=== PATIENT | male | born 1985 | race Caucasian/White ===

== ENCOUNTER 2020-01-31 12:28 | Observation (INO) ==
[2020-01-31 13:42] LABS: Basophils % 0.6 %; Eosinophils # 0.2 K/mcL (0.0-0.6); Eosinophils % 3.6 %; Hematocrit 33.5 % (37.5-50.1); Hemoglobin 11.3 g/dL (12.9-16.9); Immature Granulocytes % 0.4 % (0-4); Lymphocytes # 1.3 K/mcL (0.6-4.6); Lymphocytes % 28.2 %; Mean Corpuscular HGB Conc 33.7 g/dL (31.6-35.5); Mean Corpuscular Hemoglobin 31.9 pg (28.0-33.3); Mean Corpuscular Volume 94.6 fL (83.0-100.0); Mean Platelet Volume 9.4 fL (9.4-12.4); Monocytes # 0.2 K/mcL (0.0-1.3); Monocytes % 4.9 %; Neutrophils # 2.9 K/mcL (1.6-8.9); Platelet Count 203 K/mcL (140-400); Red Blood Count 3.54 M/mcL (4.19-5.50); Red Cell Distribution Width 12.9 % (11.5-14.5); Segmented Neutrophils % 62.3 %; White Blood Count 4.7 K/mcL (4.3-11.1)
[2020-01-31 14:17] LABS: Acetaminophen < 10 mcg/mL (10-20); Albumin 3.8 g/dL (3.5-5.7); Albumin/Globulin Ratio 1.5 (1.1-2.2); BUN/Creatinine Ratio 10 (6-26); Bilirubin,Direct 0.1 mg/dL (0.0-0.2); Bilirubin,Indirect 0.4 mg/dL (0.0-1.0); Bilirubin,Total 0.5 mg/dL (0.3-1.0); Blood Urea Nitrogen 9 mg/dL (6-20); Calcium 8.5 mg/dL (8.6-10.3); Carbon Dioxide 25 mEq/L (23-29); Chloride 109 mEq/L (98-107); Ethanol < 10 mg/dL (Less than 10); Globulin 2.6 g/dL (2.4-3.5); Glucose 107 mg/dL (70-105); Osmolality,Calculated 293 (280-300); Potassium 3.3 mEq/L (3.5-5.1); Salicylate < 2.5 mg/dL (15.0-30.0); Sodium 142 mEq/L (136-145); Total Protein 6.4 g/dL (6.4-8.9); eGFR For African Americans > 60 (> 60); eGFR For Non-African Americans > 60 (> 60)
[2020-01-31 14:31] LABS: Thyroid Stimulating Hormone 9.263 mcIU/mL (0.340-5.600)
[2020-01-31 14:41] LABS: Amphetamine Screen,Urine Negative ng/mL (Cutoff=1000); Barbiturate Screen,Urine Negative ng/mL (Cutoff=200); Benzodiazepines Screen,Urine Negative ng/mL (Cutoff=200); Cannabinoid Screen,Urine Negative ng/mL (Cutoff = 50); Cocaine Screen,Urine Negative ng/mL (Cutoff= 300); Opiate Screen,Urine Negative ng/mL (Cutoff=300); Phencyclidine Screen,Urine Negative ng/mL (Cutoff=25)
[2020-01-31 14:48] LABS: Bacteria,Urine Moderate per hpf (None-Few); Bilirubin,Urine Negative (Negative); Blood,Urine Negative (Negative); Clarity,Urine Turbid (Clear); Color,Urine Yellow (Yellow); Glucose,Urine (UA) Normal (Normal); Ketones,Urine Negative (Negative); Leukocyte Esterase,Urine Large (Negative); Mucus,Urine Moderate per lpf (None-Few); Nitrite,Urine Positive (Negative); Protein,Urine 30 mg/dL (Neg-Trace); RBC,Urine 0-3 per hpf (0-3); Specific Gravity,Urine 1.021 (1.010-1.025); Squamous Epithelial Cell,Urine Few per hpf (None-Few); Transitional Epi Cells,Urine Few per hpf (None-Few); WBC,Urine 50-100 per hpf (0-3)
[2020-01-31 14:49] LABS: Calcium Oxalate Crystals,Urine Present
[2020-01-31] MEDS ORDERED: Fosfomycin Tromethamine 3 GM Packet PO ONE (15:15)
[2020-01-31] MEDS ORDERED: Haloperidol Lactate 5 MG/ML VIAL IVP ONE (15:39)
[2020-01-31] MEDS ORDERED: *HR* LORazepam 2 MG/ML VIAL IM ONE (15:40)
[2020-01-31] MEDS ORDERED: Haloperidol Lactate 5 MG/ML VIAL IM ONE (15:40)
[2020-01-31] MEDS ORDERED: Ondansetron 4 MG/2 ML VIAL IVP PRN (16:08)
[2020-01-31] MEDS ORDERED: Naloxone 0.4 MG/ML INJ IVP PRN (16:08)
[2020-01-31] MEDS ORDERED: Haloperidol Lactate 5 MG/ML VIAL IVP PRN (16:18)
[2020-01-31 17:31] LABS: Triiodothyronine (T3) Free 3.32 pg/mL (2.50-3.90)
[2020-01-31 17:33] LABS: Creatine Kinase 625 Units/L (30-223)
[2020-01-31] MEDS: 0.9 % Sodium Chloride 1,000 ML IVC SCH (17:35)
[2020-02-01 02:15] LABS: Basophils % 0.4 %; Eosinophils # 0.2 K/mcL (0.0-0.6); Eosinophils % 3.8 %; Hematocrit 33.9 % (37.5-50.1); Hemoglobin 11.8 g/dL (12.9-16.9); Immature Granulocytes % 0.2 % (0-4); Lymphocytes # 1.9 K/mcL (0.6-4.6); Lymphocytes % 35.7 %; Mean Corpuscular HGB Conc 34.8 g/dL (31.6-35.5); Mean Corpuscular Hemoglobin 32.7 pg (28.0-33.3); Mean Corpuscular Volume 93.9 fL (83.0-100.0); Mean Platelet Volume 9.7 fL (9.4-12.4); Monocytes # 0.4 K/mcL (0.0-1.3); Neutrophils # 2.8 K/mcL (1.6-8.9); Platelet Count 204 K/mcL (140-400); Red Blood Count 3.61 M/mcL (4.19-5.50); Red Cell Distribution Width 13.2 % (11.5-14.5); Segmented Neutrophils % 52.9 %; White Blood Count 5.3 K/mcL (4.3-11.1)
[2020-02-01 02:31] LABS: BUN/Creatinine Ratio 11 (6-26); Blood Urea Nitrogen 10 mg/dL (6-20); Calcium 8.2 mg/dL (8.6-10.3); Carbon Dioxide 23 mEq/L (23-29); Chloride 114 mEq/L (98-107); Glucose 96 mg/dL (70-105); Magnesium 2.2 mg/dL (1.6-2.6); Osmolality,Calculated 297 (280-300); Potassium 3.5 mEq/L (3.5-5.1); Sodium 144 mEq/L (136-145); eGFR For African Americans > 60 (> 60); eGFR For Non-African Americans > 60 (> 60)
[2020-02-01] MEDS: 0.9 % Sodium Chloride 1,000 ML IVC SCH ×2 (03:34→17:12)
[2020-02-01] MEDS ORDERED: Acetaminophen 325 MG TABLET PO PRN (08:24)
[2020-02-01] MEDS ORDERED: 0.9 % Sodium Chloride 1,000 ML IVC SCH (08:30)
[2020-02-01] MEDS: Eucerin Cream 57 GM TUBE TP PRN ×2 (12:05→17:18)
[2020-02-01] MEDS ORDERED: QUEtiapine Fumarate 100 MG TABLET PO SCH (21:00)
[2020-02-02] MEDS: 0.9 % Sodium Chloride 1,000 ML IVC SCH (00:58)
[2020-02-02 06:14] LABS: Basophils % 0.4 %; Eosinophils # 0.2 K/mcL (0.0-0.6); Eosinophils % 2.7 %; Hematocrit 31.8 % (37.5-50.1); Immature Granulocytes % 0.2 % (0-4); Lymphocytes # 1.7 K/mcL (0.6-4.6); Lymphocytes % 30.8 %; Mean Corpuscular HGB Conc 34.6 g/dL (31.6-35.5); Mean Corpuscular Hemoglobin 32.6 pg (28.0-33.3); Mean Corpuscular Volume 94.4 fL (83.0-100.0); Mean Platelet Volume 9.7 fL (9.4-12.4); Monocytes # 0.3 K/mcL (0.0-1.3); Monocytes % 5.4 %; Neutrophils # 3.4 K/mcL (1.6-8.9); Platelet Count 211 K/mcL (140-400); Red Blood Count 3.37 M/mcL (4.19-5.50); Red Cell Distribution Width 13.1 % (11.5-14.5); Segmented Neutrophils % 60.5 %; White Blood Count 5.6 K/mcL (4.3-11.1)
[2020-02-02 06:35] LABS: BUN/Creatinine Ratio 11 (6-26); Blood Urea Nitrogen 11 mg/dL (6-20); Carbon Dioxide 25 mEq/L (23-29); Chloride 112 mEq/L (98-107); Creatine Kinase 423 Units/L (30-223); Glucose 99 mg/dL (70-105); Osmolality,Calculated 291 (280-300); Potassium 3.8 mEq/L (3.5-5.1); Sodium 141 mEq/L (136-145); eGFR For African Americans > 60 (> 60); eGFR For Non-African Americans > 60 (> 60)
[2020-02-02 10:53] VITALS: BP 154/84
[2020-02-02] MEDS ORDERED: Ziprasidone 10 MG in Water for inj. (sterile) 0.5 ML IM ONE (13:57)
== END 2020-02-02 15:05 | disposition other institution (70) ==
LOC: EMEROOARM 12:28 → 3BNU 12:28
PROVIDERS: ADMIT Internal Medicine; ATTEND Internal Medicine

== ENCOUNTER 2020-02-02 14:54 | Inpatient (IN) ==
[2020-02-02] MEDS ORDERED: Haloperidol Lactate 5 MG/ML VIAL IM PRN (14:59)
[2020-02-02] MEDS ORDERED: *HR* LORazepam 2 MG/ML VIAL IM PRN (14:59)
[2020-02-02] MEDS ORDERED: MOM Conc 10 ML UD.LIQ PO PRN (14:59)
[2020-02-02] MEDS ORDERED: hydrOXYzine pamoate 25 MG CAPSULE PO PRN (14:59)
[2020-02-02] MEDS ORDERED: Mag Hydrox/Al Hydrox/Simeth 30 ML UDC PO PRN (14:59)
[2020-02-02] MEDS ORDERED: haloperidoL 5 MG TABLET PO PRN (14:59)
[2020-02-02] MEDS ORDERED: QUEtiapine Fumarate 25 MG TABLET PO PRN (14:59)
[2020-02-02] MEDS ORDERED: Ibuprofen 400 MG TABLET PO PRN (14:59)
[2020-02-02] MEDS ORDERED: *HR* LORazepam 1 MG TABLET PO PRN (14:59)
[2020-02-02] MEDS: Cefdinir 300 MG CAPSULE PO SCH (20:22)
[2020-02-03] MEDS ORDERED: risperiDONE 1 MG TABLET PO ONE (09:41)
[2020-02-03] MEDS: Cefdinir 300 MG CAPSULE PO SCH ×2 (09:51→22:23)
[2020-02-03] MEDS: Lurasidone 20 MG TABLET PO SCH (10:46)
[2020-02-04] MEDS: Lurasidone 20 MG TABLET PO SCH (08:10)
[2020-02-04] MEDS: Cefdinir 300 MG CAPSULE PO SCH ×2 (08:10→21:18)
[2020-02-04] MEDS ORDERED: risperiDONE 1 MG TABLET PO SCH (09:00)
[2020-02-05] MEDS: Cefdinir 300 MG CAPSULE PO SCH ×2 (09:18→20:53)
[2020-02-05] MEDS: Lurasidone 20 MG TABLET PO SCH (09:18)
[2020-02-06 09:03] VITALS: BP 98/65
[2020-02-06] MEDS: Cefdinir 300 MG CAPSULE PO SCH (09:11)
[2020-02-06] MEDS: Lurasidone 20 MG TABLET PO SCH (09:12)
== END 2020-02-06 17:45 | disposition home or self-care (01) | DRG 750 ==
LOC: 1ANU 14:54
PROVIDERS: ADMIT Psychiatry & Neurology Psychiatry; ATTEND Psychiatry & Neurology Psychiatry